=== PATIENT | female | born 1975 | race Caucasian/White ===

== ENCOUNTER 2019-01-21 18:57 | Emergency (ER) | payer OTHER ==
[~2019-01-21] VITALS: Ht 162.6 cm; Wt 90.3 kg
[~2019-01-21 18:57] MED LIST: FLEXERIL PO; LORTAB 5 MG/5001 TA1 PO; MULTIVITAMINS; NORCO 5-325 TA1 EACH PO; SYNTHROID112 MCG PO; SYNTHROID50 MCG PO; VITAMIN D400 UNI1
[2019-01-21 20:38] LABS: EOSINOPHILS 0.7 % (0.0-3.0); MCHC 33.7 g/dL (28.0-37.0); PLATELET COUNT 187 thou/uL (150-400); RBC 4.78 mil/uL (4.20-5.00)
[2019-01-21 20:40] LABS: ABSOLUTE NEUTROPHILS 5.2 thou/uL (1.4-8.2); BASOPHILS 0.7 % (0.0-2.0); HEMATOCRIT 41.1 % (37.0-47.0); HEMOGLOBIN 13.9 gm/dL (12.0-15.0); LYMPHOCYTES 27.9 % (24.0-44.0); MCH 29.1 pg (26.0-34.0); MCV 86.1 fL (80.0-100.0); MONOCYTES 6.2 % (1.0-8.0); POLYS 64.5 % (36.0-66.0); RDW 13.2 % (10.5-14.5)
[2019-01-21 20:47] LABS: CALCIUM 9.5 mg/dL (8.5-10.1); CREATININE 0.8 mg/dL (0.6-1.0); POTASSIUM 3.8 mmol/L (3.5-5.1)
[2019-01-21 20:53] LABS: TOTAL BILIRUBIN 0.1 mg/dL (<0.1-1.0)
[2019-01-21] MEDS ORDERED: NAPROSYN500 MG PO (22:03)
[2019-01-21] MEDS ORDERED: REGLAN 10 MG TA10 MG PO (22:03)
[2019-01-21 22:45] VITALS: BP 117/80
--- NOTE | 2019-01-22 08:10 | EKG ---
[place] [place] [id number] [facility] [place] [employer] [place] [address] ELECTROCARDIOGRAM REPORT Name: SONG NICHOLSON Room #: DEP [facility]#: [id number] ������������������ Admission: 01/21/19 ������������������ Attend Phys: Discharge: 01/21/19 ������������������ Date of : 77 Report #: [id number] ����������������������������������������������������������������� [id number] THIS REPORT FOR: //name// [facility] ED Test Date: 2019-01-21 Test Time: 19:37:25 Pat Name: SONG NICHOLSON Department: Room: Gender: F Senior Care Manager: CHAN : 1975 Requested By: Valeriano Knowles Order Number: [id number] MD: Chito Urias Measurements Intervals [place] Rate: 80 P: 50 IA: 157 QRS: -25 QRSD: 89 T: 24 QT: 380 QTc: 439 Interpretive Statements Sinus rhythm Cannot rule out inferior infarct, old Poor R wave progression No previous ECG available for comparison Electronically Signed On 01-22-2019 8:10:20 CDT by Chito Urias [email or web address] ��������������������������������������������� <ELECTRONICALLY SIGNED> ���������������������������������������� By: Chito Urias MD, [facility] ��������������������������������������������� 01/22/19 0810 [id number] Chito Urias MD, FACC /EPI
== END 2019-01-21 22:48 | disposition home or self-care (01) ==
LOC: ER 18:57
PROVIDERS: Emergency Medicine
DX: R51 Headache (principal); K08.89 Other specified disorders of teeth and supporting structures; R20.0 Anesthesia of skin; R11.0 Nausea; E03.9 Hypothyroidism, unspecified; Z88.2 Allergy status to sulfonamides

== ENCOUNTER 2020-07-04 22:56 | Emergency (ER) | payer OTHER ==
[~2020-07-04] VITALS: Ht 165.1 cm; Wt 83.0 kg
[~2020-07-04 22:56] MED LIST changes: +NAPROSYN500 MG PO; +REGLAN 10 MG TA10 MG PO
[2020-07-05] MEDS ORDERED: IBUPROFEN 600600 M1 PO (00:34)
[2020-07-05] MEDS ORDERED: KEFLEX500 M1 PO (00:34)
[2020-07-05 00:46] VITALS: BP 103/57
== END 2020-07-05 00:47 | disposition home or self-care (01) ==
LOC: ER 22:56
DX: I80.8 Phlebitis and thrombophlebitis of other sites (principal); M79.602 Pain in left arm; E03.9 Hypothyroidism, unspecified; Z88.2 Allergy status to sulfonamides; Z90.49 Acquired absence of other specified parts of digestive tract